=== PATIENT | male | born 1985 | race Caucasian/White ===

== ENCOUNTER 2017-04-04 11:19 | Emergency (ER) | payer BC, OTHER ==
[2017-04-04 11:23] VITALS: TEMP 97.9
--- NOTE | 2017-04-04 12:43 | EDPHY ---
H & P Time Seen by Provider: 04/04/17 11:53 HPI/ROS: CHIEF COMPLAINT: Requesting detox from heroin HISTORY OF PRESENT ILLNESS: 31-year-old male in the ER via private vehicle with mother requesting inpatient detoxification from heroin. Smokes heroin. No IV drug use. Last used this morning. No suicidal for homicidal ideation. No nausea or vomiting. No anxiety. PRIMARY CARE PROVIDER: REVIEW OF SYSTEMS: A ten point review of systems was performed and is negative with the exception of the items mentioned in the HPI PHYSICAL EXAM (Prior to examination, patient consented to physical exam, hands were washed and my usual and customary physical exam procedures followed) 1) GENERAL: Well-developed, well-nourished, alert and oriented. Appears to be in no acute distress. calm, cooperative 2) HEAD: Normocephalic 3) HEENT: sclera anicteric 4) LUNGS: Breathing comfortably. Smoking Status: Never smoked Constitutional: Initial Vital Signs Temperature (C) 36.6 C 04/04/17 11:21 Heart Rate 89 04/04/17 11:21 Respiratory Rate 20 04/04/17 11:21 Blood Pressure 142/88 H 04/04/17 11:21 O2 Sat (%) 95 04/04/17 11:21 O2 Delivery Mode Room Air Allergies/Adverse Reactions: No Known Allergies Allergy (Unverified 04/04/17 11:20) Home Medications: Medication Instructions Recorded Ativan 04/04/17 LORazepam [Ativan 1 mg (RX)] 1 mg PO Q6 PRN #7 tab 04/04/17 Ondansetron Odt [Zofran Odt] 4 mg PO Q4PRN PRN #7 tab 04/04/17 MDM/Departure - MDM ED Course/Re-evaluation: marketing and promotions manager spoke with the patient and his mother. Care of patient under supervision of secondary supervising physician Dr Wilson . marketing and promotions manager has spoke with [facility] in informed that do have availability and recommended the patient his mother that he go directly there. At 1:25 p.m. he states that he is unsure whether he would go to inpatient therapy are not which is different than what he initially told me at my initial interview when he informed that he was interested in inpatient therapy. He does state that he would like symptomatic relief with benzodiazepine and antiemetic. He has been informed of the possibility of dependence with benzodiazepines. Given him a small prescription for Ativan and Zofran and highly recommend he seek inpatient therapy in order to obtain long-term sobriety. - Depart Disposition: Home, Routine, Self-Care Clinical Impression: Heroin abuse Condition: Good Instructions: Narcotic Abuse (ED) Additional Instructions: Recommend you go directly to [facility] with your mother Prescriptions: LORazepam [Ativan 1 mg (RX)] 1 mg PO Q6 PRN #7 tab PRN Reason: Anxiety Ondansetron Odt [Zofran Odt] 4 mg PO Q4PRN PRN #7 tab PRN Reason: Nausea Referrals: [facility],. [Clinic] - As per Instructions
[2017-04-04 13:37] VITALS: BP 140/85; PULSE 85; RESP 18; O2SAT 96
--- NOTE | 2017-04-04 14:08 | ASMTCMCOM ---
CM Note CM Note Notes: Case Management: Met with patient and his mother to provide resources for opiate detox, rehab, and harm reduction. Patient does not exhibit signs of anxiety or physical discomfort. He tells me that he is willing to consider detox but he has "quit" using several times and that he thinks he can do this on his own. He denies interest in rehabilitation or outpatient treatment but mom states she would like to know about availability for detox at [facility]. Patient agrees. I spoke with Rodriges at admissions at [facility] and she was able to confirm that they had detox bed availability. I have provided patient with the phone number for admissions and encouraged him to call if/when he decides he is ready. Date Signed: 04/04/2017 02:04 PM Electronically Signed By:Virginie Saab RN
== END 2017-04-04 13:36 | disposition home or self-care (01) ==
DX: F11.10 Opioid abuse, uncomplicated (principal)